=== PATIENT | male | born 1940 | race Two or more races ===

== ENCOUNTER 2022-06-14 16:59 | Inpatient (IN) | payer OTHER, MEDICAID ==
[~2022-06-14] VITALS: Ht 162.6 cm; Wt 47.3 kg
[2022-06-14] MEDS ORDERED: VANCOMYCIN PER PHARMACY 1,000 MG IV SCH (17:45)
[2022-06-14] MEDS ORDERED: VANCOMYCIN 1GM/250ML 250 ML IV ONE (18:20)
[2022-06-14 19:22] LABS: Hematocrit 49.5 % (41.0-53.0); Hemoglobin 15.7 g/dL (13.5-17.5); Mean Corpuscular Hemoglobin 31.1 pg (28.0-32.0); Mean Corpuscular Hgb Conc. 31.8 g/dL (32.0-36.0); Mean Corpuscular Volume 97.9 fL (80.0-100.0); Red Blood Cells 5.06 10^6/uL (4.5-5.90); Red Cell Distribution Width 13.6 % (11.8-14.3); White Blood Cell 3.9 10^3/uL (4.4-10.8)
[2022-06-14 19:40] LABS: Basophils % (manual) 0 (0.0-2.0); Blast Cells 0; Eosinophils % (manual) 0 (0-7); Promyelocytes % 0; Reactive Lymphocytes 0
[2022-06-14 19:41] LABS: BUN/Creatinine Ratio 22.9; Calcium 10.1 mg/dL (8.5-10.1); Lactic Acid w/Reflex 5.2 mmol/L (0.4-2.0); Potassium 4.8 mmol/L (3.5-5.1)
[2022-06-14 19:51] LABS: Bilirubin, Total 0.6 mg/dL (0.2-1.0); Total Protein 6.6 g/dL (6.4-8.2)
[2022-06-14] MEDS: PIPERACILLIN-TAZOB 3.375GM 100 ML IV SCH (19:57)
[2022-06-14 20:38] LABS: Band Neutrophils % (manual) 37; Lymphocytes % (manual) 20 (10.0-50.0); Metamyelocytes % 2; Monocytes % (manual) 7 (0-12); Myelocytes % 1
[2022-06-14] MEDS ORDERED: PIPERACILLIN-TAZO 4.5GM 100 ML IV SCH (22:00)
[2022-06-14 22:07] LABS: Lactic Acid w/Reflex 3.4 mmol/L (0.4-2.0)
[2022-06-14] MEDS ORDERED: MORPHINE SULFATE INJ 2 MG/ml SYRG IV PRN (22:45)
[2022-06-14] MEDS ORDERED: ONDANSETRON HCL 4 MG/2 ML VIAL IV PRN (22:45)
[2022-06-14] MEDS ORDERED: NITROGLYCERIN 0.4 MG SL TAB SL PRN (22:45)
[2022-06-14] MEDS ORDERED: DexAMETHasone SOD PHOS 10MG/1ML VIAL INJ IV ONE (22:45)
[2022-06-14] MEDS ORDERED: SODIUM CHLORIDE 0.9% 1,000 ML IV ONE (22:45)
[2022-06-14] MEDS ORDERED: ACETAMINOPHEN 325 MG TAB PO PRN (22:45)
[2022-06-14 23:45] VITALS: BP 96/56
[2022-06-15] MEDS: SODIUM CHLORIDE 0.9% 1,000 ML IV SCH ×2 (00:30→09:52)
[2022-06-15] MEDS: ALBUTEROL SULF 2.5 MG/0.5ML(0.5%) NEB SOLN NEB SCH ×4 (00:32→17:35)
[2022-06-15] MEDS: PIPERACILLIN-TAZOB 3.375GM 100 ML IV SCH (02:05)
[2022-06-15] MEDS ORDERED: ENOXAPARIN SOD 100 MG/1 ML SYRINGE SC ONE (05:30)
[2022-06-15 07:51] LABS: Albumin 2.4 g/dL (3.4-5.0); Calcium 9.5 mg/dL (8.5-10.1); Potassium 4.9 mmol/L (3.5-5.1)
[2022-06-15 07:53] LABS: BUN/Creatinine Ratio 23.9
[2022-06-15 07:55] LABS: Bilirubin, Total 0.8 mg/dL (0.2-1.0); Total Protein 5.4 g/dL (6.4-8.2)
[2022-06-15 08:18] LABS: Hemoglobin 14.2 g/dL (13.5-17.5); Mean Corpuscular Hemoglobin 31.1 pg (28.0-32.0); Mean Corpuscular Hgb Conc. 31.6 g/dL (32.0-36.0); Mean Corpuscular Volume 98.2 fL (80.0-100.0); Red Blood Cells 4.58 10^6/uL (4.5-5.90); Red Cell Distribution Width 13.8 % (11.8-14.3); White Blood Cell 6.5 10^3/uL (4.4-10.8)
[2022-06-15] MEDS ORDERED: cefTRIAXone 1GM/50ML D5W 50 ML IV SCH (09:00)
[2022-06-15 09:13] LABS: Basophils % (manual) 0 (0.0-2.0); Eosinophils % (manual) 0 (0-7)
[2022-06-15 09:14] LABS: Blast Cells 0; Promyelocytes % 0; Reactive Lymphocytes 0
[2022-06-15] MEDS: MULTIPLE VITAMIN TAB PO SCH (10:00)
[2022-06-15] MEDS: ZINC SULFATE 220mg CAP or TAB PO SCH (10:00)
[2022-06-15] MEDS: ASCORBIC ACID 500 MG TAB PO SCH ×2 (10:00→21:31)
[2022-06-15] MEDS: DexAMETHasone SOD PHOS 10MG/1ML VIAL INJ IV SCH (10:11)
[2022-06-15] MEDS: AZITHROMYCIN 500MG/ 250ML 250 ML IV SCH (11:14)
[2022-06-15] MEDS ORDERED: REMDESIVIR PER PHARMACY 0 ML IV SCH (12:00)
[2022-06-15] MEDS ORDERED: PIPERACILLIN-TAZOB 3.375GM 100 ML IV SCH (12:00)
[2022-06-15] MEDS: IPRATROPIUM BROM 0.5 MG/2.5ML INH SOL NEB SCH ×2 (12:00→17:35)
[2022-06-15] MEDS: SOD CHL 0.45% 1,000 ML IV SCH ×2 (16:42→16:44)
[2022-06-15] MEDS: ENOXAPARIN SOD 60 MG/0.6 ML SYRINGE SC SCH (16:59)
[2022-06-15 17:34] LABS: Band Neutrophils % (manual) 48; Lymphocytes % (manual) 15 (10.0-50.0); Metamyelocytes % 4; Monocytes % (manual) 2 (0-12); Myelocytes % 5
[2022-06-15] MEDS: D5W 5% 1,000 ML IV SCH (19:00)
[2022-06-15 19:34] VITALS: BP 118/73
[2022-06-15] MEDS ORDERED: VANCOMYCIN 1GM/250ML 250 ML IV ONE (20:00)
[2022-06-15 22:00] VITALS: BP 118/73
[2022-06-16] MEDS ORDERED: dilTIAZem 25 MG/5 ML VIAL IV ONE (00:30)
[2022-06-16] MEDS: IPRATROPIUM BROM 0.5 MG/2.5ML INH SOL NEB SCH ×4 (00:50→19:18)
[2022-06-16] MEDS: ALBUTEROL SULF 2.5 MG/0.5ML(0.5%) NEB SOLN NEB SCH ×4 (00:50→19:18)
[2022-06-16] MEDS: D5W 5% 1,000 ML IV SCH ×2 (03:47→20:17)
[2022-06-16 05:37] VITALS: BP 105/58
[2022-06-16 07:57] LABS: BUN/Creatinine Ratio 32.7; Calcium 9.5 mg/dL (8.5-10.1); Potassium 4.1 mmol/L (3.5-5.1)
[2022-06-16 08:00] VITALS: BP 148/65
[2022-06-16 08:53] VITALS: BP 101/59
[2022-06-16] MEDS: ZINC SULFATE 220mg CAP or TAB PO SCH (10:00)
[2022-06-16] MEDS: MULTIPLE VITAMIN TAB PO SCH (10:00)
[2022-06-16] MEDS: ASCORBIC ACID 500 MG TAB PO SCH ×2 (10:00→21:30)
[2022-06-16] MEDS: DexAMETHasone SOD PHOS 10MG/1ML VIAL INJ IV SCH (10:16)
[2022-06-16] MEDS: AZITHROMYCIN 500MG/ 250ML 250 ML IV SCH (10:16)
[2022-06-16 12:35] VITALS: BP 103/59
[2022-06-16] MEDS: ENOXAPARIN SOD 60 MG/0.6 ML SYRINGE SC SCH (14:36)
[2022-06-16 16:50] VITALS: BP 128/71
[2022-06-16] MEDS: cefTRIAXone 1GM/50ML D5W 50 ML IV SCH (17:08)
[2022-06-16 21:56] VITALS: BP 120/70
[2022-06-17] MEDS: ALBUTEROL SULF 2.5 MG/0.5ML(0.5%) NEB SOLN NEB SCH ×4 (00:05→19:27)
[2022-06-17] MEDS: IPRATROPIUM BROM 0.5 MG/2.5ML INH SOL NEB SCH ×4 (00:05→19:27)
[2022-06-17 04:43] VITALS: BP 123/75
[2022-06-17 06:29] LABS: BUN/Creatinine Ratio 41.3; Calcium 9.9 mg/dL (8.5-10.1); Potassium 4.7 mmol/L (3.5-5.1)
[2022-06-17 09:01] VITALS: BP 154/75
[2022-06-17] MEDS: cefTRIAXone 1GM/50ML D5W 50 ML IV SCH (09:02)
[2022-06-17] MEDS: ASCORBIC ACID 500 MG TAB PO SCH ×2 (10:00→21:06)
[2022-06-17] MEDS: MULTIPLE VITAMIN TAB PO SCH (10:00)
[2022-06-17] MEDS: ZINC SULFATE 220mg CAP or TAB PO SCH (10:00)
[2022-06-17] MEDS: AZITHROMYCIN 500MG/ 250ML 250 ML IV SCH (10:43)
[2022-06-17] MEDS: DexAMETHasone SOD PHOS 10MG/1ML VIAL INJ IV SCH (10:43)
[2022-06-17] MEDS: D5W 5% 1,000 ML IV SCH (11:40)
[2022-06-17 13:00] VITALS: BP 167/81
[2022-06-17] MEDS: ENOXAPARIN SOD 60 MG/0.6 ML SYRINGE SC SCH (13:33)
[2022-06-17 17:29] VITALS: BP 142/72
[2022-06-17 19:32] VITALS: BP 142/72
[2022-06-17 21:48] VITALS: BP 127/77
[2022-06-18] VITALS (8 sets, daily range): BP systolic 126–153; BP diastolic 80–91
[2022-06-18] MEDS: ALBUTEROL SULF 2.5 MG/0.5ML(0.5%) NEB SOLN NEB SCH ×4 (00:25→19:09)
[2022-06-18] MEDS: IPRATROPIUM BROM 0.5 MG/2.5ML INH SOL NEB SCH ×4 (00:25→19:09)
[2022-06-18] MEDS: D5W 5% 1,000 ML IV SCH ×2 (04:45→11:25)
[2022-06-18] MEDS: cefTRIAXone 1GM/50ML D5W 50 ML IV SCH (08:59)
[2022-06-18] MEDS: MULTIPLE VITAMIN TAB PO SCH (10:00)
[2022-06-18] MEDS: ZINC SULFATE 220mg CAP or TAB PO SCH (10:00)
[2022-06-18] MEDS: ASCORBIC ACID 500 MG TAB PO SCH ×2 (10:00→21:10)
[2022-06-18] MEDS: AZITHROMYCIN 500MG/ 250ML 250 ML IV SCH (11:12)
[2022-06-18] MEDS: DexAMETHasone SOD PHOS 10MG/1ML VIAL INJ IV SCH (11:12)
[2022-06-18] MEDS: ENOXAPARIN SOD 40 MG/0.4 ML SYRINGE SC SCH (11:13)
[2022-06-19] MEDS: ALBUTEROL SULF 2.5 MG/0.5ML(0.5%) NEB SOLN NEB SCH ×4 (00:21→18:52)
[2022-06-19] MEDS: IPRATROPIUM BROM 0.5 MG/2.5ML INH SOL NEB SCH ×4 (00:21→18:52)
[2022-06-19] MEDS: D5W 5% 1,000 ML IV SCH ×3 (01:30→17:14)
[2022-06-19 05:25] VITALS: BP 145/80
[2022-06-19 08:29] VITALS: BP 154/84
[2022-06-19] MEDS: cefTRIAXone 1GM/50ML D5W 50 ML IV SCH (08:29)
[2022-06-19] MEDS: AZITHROMYCIN 500MG/ 250ML 250 ML IV SCH (09:57)
[2022-06-19] MEDS: DexAMETHasone SOD PHOS 10MG/1ML VIAL INJ IV SCH (09:57)
[2022-06-19] MEDS: MULTIPLE VITAMIN TAB PO SCH (09:58)
[2022-06-19] MEDS: ZINC SULFATE 220mg CAP or TAB PO SCH (09:58)
[2022-06-19] MEDS: ASCORBIC ACID 500 MG TAB PO SCH ×2 (09:59→21:21)
[2022-06-19] MEDS: ENOXAPARIN SOD 40 MG/0.4 ML SYRINGE SC SCH (10:03)
[2022-06-19] MEDS ORDERED: levoFLOXacin 500MG 100 ML IV ONE (11:30)
[2022-06-19 13:05] VITALS: BP 122/82
[2022-06-19 13:07] VITALS: BP 142/72
[2022-06-19 17:07] VITALS: BP 134/84
[2022-06-19 21:34] VITALS: BP 148/84
[2022-06-20] MEDS: ALBUTEROL SULF 2.5 MG/0.5ML(0.5%) NEB SOLN NEB SCH ×4 (00:37→18:02)
[2022-06-20] MEDS: IPRATROPIUM BROM 0.5 MG/2.5ML INH SOL NEB SCH ×4 (00:37→18:02)
[2022-06-20 05:00] VITALS: BP 141/85
[2022-06-20 09:11] VITALS: BP_SYST 156; BP_SYST 172; BP_DIAS 82; BP_DIAS 85
[2022-06-20] MEDS: MULTIPLE VITAMIN TAB PO SCH (09:24)
[2022-06-20] MEDS: DexAMETHasone SOD PHOS 10MG/1ML VIAL INJ IV SCH (09:24)
[2022-06-20] MEDS: ZINC SULFATE 220mg CAP or TAB PO SCH (09:24)
[2022-06-20] MEDS: ENOXAPARIN SOD 40 MG/0.4 ML SYRINGE SC SCH (09:24)
[2022-06-20] MEDS: ASCORBIC ACID 500 MG TAB PO SCH (09:25)
[2022-06-20] MEDS ORDERED: levoFLOXacin 500MG 100 ML IV SCH (10:00)
[2022-06-20] MEDS ORDERED: ASCO500C49 PO (12:25)
[2022-06-20] MEDS ORDERED: LEVO500T31 PO (12:25)
[2022-06-20] MEDS ORDERED: CHOL20007 PO (12:25)
[2022-06-20] MEDS ORDERED: ALBUAER3 IN (12:25)
[2022-06-20] MEDS ORDERED: ZINC220C10 PO (12:25)
[2022-06-20 12:42] VITALS: BP 149/83
== END 2022-06-20 18:10 | disposition hospice, home (50) | DRG 871 ==
LOC: EDBD 16:59 → ER 16:59 → TELE 22:50 → TELE-CENTR 06-15 18:31 → TELE-WESTW 06-16 02:10
PROVIDERS: ADMIT Nurse Practitioner; ATTEND Family Medicine
DX: A41.9 Sepsis, unspecified organism (principal); E43 Unspecified severe protein-calorie malnutrition; J12.82 Pneumonia due to coronavirus disease 2019; U07.1 COVID-19; G93.41 Metabolic encephalopathy; J96.01 Acute respiratory failure with hypoxia; N17.9 Acute kidney failure, unspecified; E87.0 Hyperosmolality and hypernatremia; J98.11 Atelectasis; Z68.1 Body mass index [BMI] 19.9 or less, adult; N18.32 Chronic kidney disease, stage 3b; Z66 Do not resuscitate; F03.90 Unspecified dementia, unspecified severity, without behavioral disturbance, psychotic disturbance, mood disturbance, and anxiety; B95.7 Other staphylococcus as the cause of diseases classified elsewhere; Z51.5 Encounter for palliative care
CPT/HCPCS: 36415; 71045; 76775; 80048; 80053; 80202; 82565; 82728; 83605; 84100; 84484; 85007; 85027; 85049; 85379; 87040; 87077; 87186; 87426; 92610; 93970; 94640; 96361; 96365; 96366; 96367; 96372; 96375; 96376; G0378; J0696; J1100; J1956; J2543; J7042